=== PATIENT | male | born 1975 | race Caucasian/White ===

== ENCOUNTER 2017-05-10 08:48 | Inpatient (IN) | payer MEDICAID, OTHER ==
[2017-05-10] VITALS (10 sets, daily range): BP systolic 127–177; BP diastolic 80–102; PULSE 59–86; RESP 15–18; TEMP 97.6–98.2; O2SAT 95–99
[~2017-05-10] VITALS: Ht 172.7 cm; Wt 100.1 kg
[~2017-05-10 08:48] MED LIST: BACT PO; CLIN150 PO
[2017-05-10] MEDS ORDERED: SODIUM CHLOR 0.9% 1000 ML INJ 1,000 ML IV SCH (09:01)
--- NOTE | 2017-05-10 09:14 | PD ---
HPI Chief Complaint: Abdominal Pain Time Seen by Provider: 09:12 Travel History International Travel<30 days: No Contact w/Intl Traveler<30days: No Traveled to known affect area: No History of Present Illness HPI 41-year-old male with history of recent diagnosis of diabetes, presents to the ER today for right sided abdominal pain that started this morning, he states this started out in the right flank area with radiation down to the right sided abdomen. He has been nauseous and vomiting. He denies any diarrhea, fevers, urinary symptoms, or other symptoms. He denies any previous episodes. Modifying Factors: None Associated Signs & Symptoms: Nausea, vomiting, right sided abdominal and flank pain Risk Factors: Recent diabetes PFSH Past Medical History Anxiety: Yes High Cholesterol: Yes Diminished Hearing: No Gout: Yes (R KNEE) Immunizations Current: Yes Social History Alcohol Use: Yes (ONCE OR TWICE A MONTH) Tobacco Use: No Substance Use: No Allergies-Medications (Allergen,Severity, Reaction): Coded Allergies: No Known Allergies (Verified , 05/10/17) Reported Meds & Prescriptions Reported Meds & Active Scripts Active Review of Systems Except as stated in HPI: all other systems reviewed are Neg Physical Exam Narrative GENERAL: Well-developed middle age white male patient currently in moderate distress. SKIN: Focused skin assessment warm/dry. HEAD: Atraumatic. Normocephalic. EYES: Pupils equal and round. No scleral icterus. No injection or drainage. ENT: No nasal bleeding or discharge. Mucous membranes pink and moist. NECK: Trachea midline. No JVD. CARDIOVASCULAR: Regular rate and rhythm. No murmur appreciated. RESPIRATORY: No accessory muscle use. Clear to auscultation. Breath sounds equal bilaterally. GASTROINTESTINAL: Abdomen soft, right sided and periumbilical abdominal tenderness with no guarding or rebound, nondistended. Hepatic and splenic margins not palpable. MUSCULOSKELETAL: No obvious deformities. No clubbing. No cyanosis. No edema. BACK: Right CVA tenderness. No rash. No point tenderness on palpation of the spine. NEUROLOGICAL: Awake and alert. No obvious cranial nerve deficits. Motor grossly within normal limits. Normal speech. PSYCHIATRIC: Appropriate mood and affect; insight and judgment normal. Data Data Last Documented VS Vital Signs Date Time Temp Pulse Resp B/P Pulse Ox O2 Delivery O2 Flow Rate FiO2 05/10/17 11:57 60 15 158/100 95 05/10/17 10:03 Room Air 05/10/17 08:50 97.6 Orders Complete Blood Count With Diff (05/10/17 09:01) Comprehensive Metabolic Panel (05/10/17 09:01) Lipase (05/10/17 09:01) Urinalysis - C+S If Indicated (05/10/17 09:01) Iv Access Insert/Monitor (05/10/17 09:01) Ecg Monitoring (05/10/17 09:01) Oximetry (05/10/17 09:01) Ondansetron Inj (Zofran Inj) (05/10/17 09:15) Sodium Chlor 0.9% 1000 Ml Inj (Ns 1000 M (05/10/17 09:01) Sodium Chloride 0.9% Flush (Ns Flush) (05/10/17 09:15) Beta Hydroxybutyrate (Acetone) (05/10/17 09:01) Hydromorphone Pf Inj (Dilaudid Pf Inj) (05/10/17 09:15) Ct Abd/Pel W Iv Contrast(Rout) (05/10/17 09:12) Hydromorphone Pf Inj (Dilaudid Pf Inj) (05/10/17 09:45) Iohexol 350 Inj (Omnipaque 350 Inj) (05/10/17 10:48) Insulin Human Regular Inj (Novolin R Inj (05/10/17 11:30) Labs Laboratory Tests Test 05/10/17 09:15 White Blood Count 7.8 TH/MM3 Red Blood Count 5.76 MIL/MM3 Hemoglobin 16.3 GM/DL Hematocrit 47.6 % Mean Corpuscular Volume 82.6 FL Mean Corpuscular Hemoglobin 28.2 PG Mean Corpuscular Hemoglobin 34.1 % Concent Red Cell Distribution Width 13.7 % Platelet Count 197 TH/MM3 Mean Platelet Volume 10.0 FL Neutrophils (%) (Auto) 59.3 % Lymphocytes (%) (Auto) 27.5 % Monocytes (%) (Auto) 10.9 % Eosinophils (%) (Auto) 1.5 % Basophils (%) (Auto) 0.8 % Neutrophils # (Auto) 4.6 TH/MM3 Lymphocytes # (Auto) 2.1 TH/MM3 Monocytes # (Auto) 0.8 TH/MM3 Eosinophils # (Auto) 0.1 TH/MM3 Basophils # (Auto) 0.1 TH/MM3 CBC Comment DIFF FINAL Differential Comment Urine Color LIGHT-YELLOW Urine Turbidity CLEAR Urine pH 5.5 Urine Specific [place] 1.034 Urine Protein NEG mg/dL Urine Glucose (UA) 1000 mg/dL Urine Ketones TRACE mg/dL Urine Occult Blood NEG Urine Nitrite NEG Urine Bilirubin NEG Urine Urobilinogen LESS THAN 2.0 MG/DL Urine Leukocyte Esterase NEG Urine RBC 1 /hpf Microscopic Urinalysis Comment CULT NOT INDICATED Sodium Level 135 MEQ/L Potassium Level 4.0 MEQ/L Chloride Level 98 MEQ/L Carbon Dioxide Level 27.2 MEQ/L Anion Gap 10 MEQ/L Blood Urea Nitrogen 30 MG/DL Creatinine 1.27 MG/DL Estimat Glomerular Filtration 62 ML/MIN Rate Random Glucose 381 MG/DL Calcium Level 9.2 MG/DL Total Bilirubin 0.4 MG/DL Aspartate Amino Transf 18 U/L (AST/SGOT) Alanine Aminotransferase 33 U/L (ALT/SGPT) Alkaline Phosphatase 119 U/L Total Protein 8.4 GM/DL Albumin 3.9 GM/DL Lipase 226 U/L B-Hydroxybutyrate 0.21 MMOL/L [facility] Medical Decision Making Medical Screen Exam Complete: Yes Emergency Medical Condition: Yes Medical Record Reviewed: Yes Interpretation(s) Laboratory Tests Test 05/10/17 09:15 Monocytes (%) (Auto) 10.9 % (0.0-8.0) Urine Glucose (UA) 1000 mg/dL (NEG) Urine Ketones TRACE mg/dL (NEG) Sodium Level 135 MEQ/L (136-145) Blood Urea Nitrogen 30 MG/DL (7-18) Estimat Glomerular Filtration 62 ML/MIN (>89) Rate Random Glucose 381 MG/DL (74-106) Alkaline Phosphatase 119 U/L (45-117) Total Protein 8.4 GM/DL (6.4-8.2) Differential Diagnosis Renal colic versus musculoskeletal versus DKA versus cholecystitis versus other acute intra-abdominal processes Narrative Course Lab work did not show any significant metabolic issues or any signs of dehydration. His white count was unremarkable and UA did not show significant signs of UTI. Lipase is normal. CAT scan shows signs of possible inflammation around the left kidney and pancreas and there is a proximal 3-4 mm urethral stone. At this point, the pain is inconsistent with the findings and it is unclear whether this is the cause of the pain. We do not see any signs of other causes. My plan would be to admit him as an observation for further evaluation. Patient has also been given 2 doses of Dilaudid and still appears uncomfortable. Planning to admit for pain control as well. Case is discussed with Dr. Garcia for admission. Diagnosis Primary Impression: Kidney stone Additional Impression: Abdominal pain Admitting Information Admitting Physician Requests: Admit Scripts No Active Prescriptions or Reported Meds Anmol Mueller MD May 10, 2017 09:14
[2017-05-10] MEDS ORDERED: HYDROmorphone HCL PF 1 MG/ML VIAL IV PUSH ONE ×2 (09:15→09:45)
[2017-05-10] MEDS ORDERED: ONDANSETRON HCL 4 MG/2 ML VIAL IVP ONE (09:15)
[2017-05-10] MEDS ORDERED: SODIUM CHLORIDE 0.9% FLUSH 10 ML FLUSH IV FLUSH PRN ×2 (09:15→12:45)
[2017-05-10 09:32] LABS: AUTOMATED NEUTROPHIL # 4.6 TH/MM3 (1.8-7.7); BASOPHIL # 0.1 TH/MM3 (0-0.2); BASOPHIL % 0.8 % (0.0-2.0); EOSINOPHIL # 0.1 TH/MM3 (0-0.4); EOSINOPHIL % 1.5 % (0.0-4.0); HEMATOCRIT 47.6 % (39.0-51.0); HEMO FLAGS DIFF FINAL; LYMPH % 27.5 % (9.0-44.0); LYMPHOCYTE # 2.1 TH/MM3 (1.0-4.8); MEAN CELL VOLUME 82.6 FL (80.0-100.0); MEAN CORPUSCULAR HEMOGLOBIN 28.2 PG (27.0-34.0); MEAN CORPUSCULAR HGB CONC 34.1 % (32.0-36.0); MONO % 10.9 % (0.0-8.0); NEUT % 59.3 % (16.0-70.0); PLATELET COUNT 197 TH/MM3 (150-450); RED BLOOD COUNT 5.76 MIL/MM3 (4.50-5.90); RED CELL DISTRIBUTION WIDTH 13.7 % (11.6-17.2); WHITE BLOOD COUNT 7.8 TH/MM3 (4.0-11.0)
[2017-05-10 09:35] LABS: BLOOD, URINE NEG (NEG); COMMENT (UR) CULT NOT INDICATED; CULTURE IF INDICATED CULT NOT INDICATED; GLUCOSE,URINE 1000 mg/dL (NEG); KETONE, URINE TRACE mg/dL (NEG); NITRITE,URINE NEG (NEG); PH, URINE 5.5 (5.0-8.5); URINE COLOR LIGHT-YELLOW (YELLW/STRAW)
[2017-05-10 09:45] LABS: ANION GAP 10 MEQ/L (5-15); BICARBONATE 27.2 MEQ/L (21.0-32.0); BLOOD UREA NITROGEN 30 MG/DL (7-18); CHLORIDE 98 MEQ/L (98-107); GLOMERULAR FILTRATION RATE 62 ML/MIN (>89); SODIUM (NA) 135 MEQ/L (136-145)
[2017-05-10 09:48] LABS: ALKALINE PHOSPHATASE 119 U/L (45-117); ALT (GPT) 33 U/L (12-78); AST (GOT) 18 U/L (15-37); BETA-HYDROXYBUTYRATE 0.21 MMOL/L (0.00-0.39); TOTAL BILIRUBIN ADULT 0.4 MG/DL (0.2-1.0)
[2017-05-10] MEDS ORDERED: IOHEXOL 350 MG/ML 10 ML VIAL (for RAD DIAG) IV ONE (10:48)
[2017-05-10] MEDS ORDERED: INSULIN HUMAN REGULAR 1,000 UNITS/10 ML VIAL IV PUSH ONE (11:30)
--- NOTE | 2017-05-10 11:31 | RADRPT ---
EXAM DATE/TIME: 05/10/2017 10:43 [facility] COMPARISON: No previous studies available for comparison. INDICATIONS : Right flank pain radiating to abdomen with nausea and vomiting. IV CONTRAST: 97 cc Omnipaque 350 (iohexol) IV ORAL CONTRAST: No oral contrast ingested. RADIATION DOSE: 11.30 CTDIvol (mGy) MEDICAL HISTORY : None SURGICAL HISTORY : None. ENCOUNTER: Initial ACUITY: 1 day PAIN SCALE: 6/10 LOCATION: Right flank abdomen TECHNIQUE: Volumetric scanning of the abdomen and pelvis was performed. Using automated exposure control and ad justment of the mA and/or kV according to patient size, radiation dose was kept as low as reasonably achievable to obtain optimal diagnostic quality images. FINDINGS: The lung bases are clear. The liver is free of focal defects. The spleen is unremarkable. Gallblad biaml is contracted and probably contains a small stone. There is perinephric stranding about the right ureter with a tiny3-4 mm stone in the proximal third u pper left ureter. Stone is triangular shaped. There is some fluid in the lesser sac along the undersurface of the pancreas but the pancreas looks o martin. Pancreatitis could be excluded clinically. Pelvic contents are unremarkable. CONCLUSION: Stone 3-4 mm proximal third right ureter. Frank Méndez MD FACR on May 10, 2017 at 11:22 Board Certified Radiologist. This report was verified electronically.
[2017-05-10] MEDS ORDERED: LACTULOSE SYRUP 20 GM/30 ML CUP PO PRN (12:45)
[2017-05-10] MEDS ORDERED: ACETAMINOPHEN 325 MG TAB PO PRN (12:45)
[2017-05-10] MEDS ORDERED: BISACODYL 10 MG SUPP RECTAL PRN (12:45)
[2017-05-10] MEDS ORDERED: SENNOSIDES 8.6 MG TAB PO PRN (12:45)
[2017-05-10] MEDS ORDERED: MAGNESIUM HYDROXIDE SUSP 30 ML CUP PO PRN (12:45)
[2017-05-10] MEDS ORDERED: NALOXONE HCL 0.4 MG/ML AMP IV PRN (12:45)
[2017-05-10] MEDS: SODIUM CHLOR 0.9% 1000 ML INJ 1,000 ML IV SCH ×2 (13:11→23:45)
[2017-05-10] MEDS ORDERED: KETOROLAC TROMETHAMINE 30 MG/ML (IVP) VIAL IV PUSH ONE ×2 (13:15→21:30)
[2017-05-10] MEDS ORDERED: GLUCAGON 1 MG/ML VIAL OTHER PRN (13:30)
[2017-05-10] MEDS ORDERED: DEXTROSE 50% IN WATER 50 ML VIAL(D50) IV PRN (13:30)
--- NOTE | 2017-05-10 13:54 | HHI.HP ---
[facility] Service [place] Primary Care Physician No Primary Care Physician Admission Diagnosis abdominal pain/kidney stone Diagnoses: Chief Complaint: Right flank pain Travel History International Travel<30 Days: No Contact w/Intl Traveler <30 Da: No Traveled to Known Affected Are: No History of Present Illness Written by Bryan Cummins, acting as scribe for Dr. Garcia on 05/10/17 at 13:11. This note was transcribed by scribIsacc BELL. I, Dr. Betty Garcia personally performed the history, physical exam, and medical decision making; and confirmed the accuracy of the information in the transcribed note. Authenticated by Dr. Betty Garcia on 05/10/17 at 13:11. 41-year-old male with a recent diagnosis of glucosuria who presented with abdominal/flank pain. The patient states that he woke up today and had right flank pain. He locates the pain on his right lower back and states the pain radiates to his groin. He had associated nausea and vomiting today. He denies any recent back injury. He denies any problems with urination. No fevers. Intermittent, recent episodes of chest pain and shortness breath, none currently. 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 He bought a glucometer and has been checking his sugar at home which is persistently in the 300s and sometimes up to 450. He does have a family history of diabetes. He has had kidney stones in the past. The patient was admitted for intractable pain, likely from kidney stone. Review of Systems Except as stated in HPI: all other systems reviewed are Neg Past Family Social History Past Medical History History of kidney stones History of glucosuria with no formal diabetes diagnosis Reported Medications None Allergies: Coded Allergies: No Known Allergies (Verified , 05/10/17) Active Ordered Medications Current Medications Medications (Trade) Dose Ordered Sig/Kellie Route Start Time Stop Time Status Last Admin (NS 1000 ml Inj) 1,000 ml @ 100 mls/hr Q10H IV 05/10/17 12:31 05/10/17 13:11 (NS Flush) 2 ml UNSCH PRN IV FLUSH 05/10/17 12:45 (NS Flush) 2 ml BID IV FLUSH 05/10/17 21:00 (Tylenol) 650 mg Q4H PRN PO 05/10/17 12:45 (Lovenox Inj) 40 mg Q24H SQ 05/10/17 14:00 (Ladan-Colace) 1 tab BID PO 05/10/17 21:00 (Milk Of Magnesia Liq) 30 ml Q12H PRN PO 05/10/17 12:45 (Senokot) 17.2 mg Q12H PRN PO 05/10/17 12:45 (Dulcolax Supp) 10 mg DAILY PRN RECTAL 05/10/17 12:45 (Lactulose Liq) 30 ml DAILY PRN PO 05/10/17 12:45 ([place] 10-325 Mg) 1 tab Q4H PRN PO 05/10/17 12:45 (Dilaudid Pf Inj) 1 mg Q4HR PRN IV 05/10/17 12:45 (Narcan Inj) 0.4 mg UNSCH PRN IV 05/10/17 12:45 (D50w (Vial) Inj) 50 ml UNSCH PRN IV 05/10/17 13:30 (Glucagon Inj) 1 mg UNSCH PRN OTHER 05/10/17 13:30 Family History Brother had kidney stones Father and mother have diabetes Social History The patient denies any alcohol, tobacco, or drug use Physical Exam Vital Signs Vital Signs Date Time Temp Pulse Resp B/P Pulse Ox O2 Delivery O2 Flow Rate FiO2 05/10/17 13:17 97 05/10/17 12:38 68 15 155/80 97 Room Air 05/10/17 11:57 60 15 158/100 95 05/10/17 10:35 14 05/10/17 10:03 60 15 158/95 95 Room Air 05/10/17 10:02 15 05/10/17 09:19 59 15 154/98 95 Room Air 05/10/17 09:19 59 15 154/98 95 Room Air 05/10/17 09:19 15 05/10/17 08:50 97.6 60 16 177/102 99 Physical Exam GENERAL: Well-developed well-nourished. In no acute distress. SKIN: Warm and dry. No lesions noted. HEENT: Normocephalic. Pupils equal and round. Mucous membranes pink and moist. CARDIOVASCULAR: Regular rate and rhythm. No murmur appreciated. RESPIRATORY: No accessory muscle use. Clear to auscultation. Breath sounds equal bilaterally. GASTROINTESTINAL: Abdomen soft, nondistended. Tenderness to palpation from the right CVA around to the right groin. Bowel sounds x4. MUSCULOSKELETAL: No obvious deformities. No clubbing or cyanosis. No edema. Negative straight leg raise on the right. NEUROLOGICAL: Awake and alert. No focal neurological deficits. Moves upper and lower extremities spontaneously. Normal speech. PSYCHIATRIC: Appropriate mood and affect; insight and judgment normal. Laboratory Laboratory Tests Test 05/10/17 09:15 White Blood Count 7.8 Red Blood Count 5.76 Hemoglobin 16.3 Hematocrit 47.6 Mean Corpuscular Volume 82.6 Mean Corpuscular Hemoglobin 28.2 Mean Corpuscular Hemoglobin 34.1 Concent Red Cell Distribution Width 13.7 Platelet Count 197 Mean Platelet Volume 10.0 Neutrophils (%) (Auto) 59.3 Lymphocytes (%) (Auto) 27.5 Monocytes (%) (Auto) 10.9 Eosinophils (%) (Auto) 1.5 Basophils (%) (Auto) 0.8 Neutrophils # (Auto) 4.6 Lymphocytes # (Auto) 2.1 Monocytes # (Auto) 0.8 Eosinophils # (Auto) 0.1 Basophils # (Auto) 0.1 CBC Comment DIFF FINAL Differential Comment Urine Color LIGHT-YELLOW Urine Turbidity CLEAR Urine pH 5.5 Urine Specific [place] 1.034 Urine Protein NEG Urine Glucose (UA) 1000 Urine Ketones TRACE Urine Occult Blood NEG Urine Nitrite NEG Urine Bilirubin NEG Urine Urobilinogen LESS THAN 2.0 Urine Leukocyte Esterase NEG Urine RBC 1 Microscopic Urinalysis Comment CULT NOT INDICATED Sodium Level 135 Potassium Level 4.0 Chloride Level 98 Carbon Dioxide Level 27.2 Anion Gap 10 Blood Urea Nitrogen 30 Creatinine 1.27 Estimat Glomerular Filtration 62 Rate Random Glucose 381 Calcium Level 9.2 Total Bilirubin 0.4 Aspartate Amino Transf 18 (AST/SGOT) Alanine Aminotransferase 33 (ALT/SGPT) Alkaline Phosphatase 119 Total Protein 8.4 Albumin 3.9 Lipase 226 B-Hydroxybutyrate 0.21 Result Diagram: 05/10/17 0915 05/10/17 0915 Assessment and Plan Assessment and Plan 41-year-old male with a recent diagnosis of glucosuria who presented with abdominal/flank pain Right renal colic: Intractable right-sided flank pain with signs of passed stone on abdominal CT. Reviewed: CT abdomen and pelvis shows. Nephrotic stranding about the right ureter and a 23 4 mm stone in the proximal third upper left ureter; some fluid on the undersurface of the pancreas with no gross pancreatic abnormality. Lipase within normal limits. Afebrile with no leukocytosis. UA with 1000 glucose and trace ketones. -Pain control with [place] and IV Dilaudid prn. IV Toradol 1. -IVF -Check renal ultrasound New-onset diabetes mellitus with hyperglycemia: No signs of DKA. Sliding scale insulin coverage and monitor Accu-Cheks. Check hemoglobin A1c and lipid panel. Consult hospice educator and dietitian. Hypertension?: BP is elevated. Possibly secondary to pain and hyperglycemia. Clonidine as needed. Monitor. DVT prophylaxis: Lovenox Discussed Condition With Patient with SO at bedside. ED staff. Bryan Cummins May 10, 2017 13:54 Betty Garcia MD May 10, 2017 15:28
--- NOTE | 2017-05-10 14:46 | RADRPT ---
EXAM DATE/TIME: 05/10/2017 13:43 [facility] COMPARISON: No previous studies available for comparison. INDICATIONS : Flank pain. MEDICAL HISTORY : Hypercholesterolemia. Gout. Flank pain. SURGICAL HISTORY : None. ENCOUNTER: Initial ACUITY: 1 day PAIN SCORE: 7/10 LOCATION: Bilateral flank MEASUREMENTS: RIGHT KIDNEY: 12.6 x 7.2 x 7.7 cm LEFT KIDNEY: 12.6 x 5.3 x 6.2 cm FINDINGS: RIGHT KIDNEY: There is mild right-sided hydronephrosis and. Right kidney is otherwise unremarkable without evidence for stone. No significant mass. LEFT KIDNEY: There is a single echogenic stone in the mid left kidney measuring 5 x 3 x 5 mm. Left kidney is other kang unremarkable without evidence for hydronephrosis. No significant mass. BLADDER: There are at least 2 distinct hyperechoic stones with posterior shadowing noted primarily along the r ight dependent bladder. These measure 1.3 x 0.9 x 2.4 cm and 1.1 x 0.7 x 1.9 cm. CONCLUSION: 1. Small 5 x 3 x 5 mm nonobstructing mid left renal calyceal stone. 2. Mild right-sided hydronephrosis with at least 2 distinct apparent stones seen along the right depe ndent bladder measuring 1.3 x 0.9 x 2.4 cm and 1.1 x 0.7 x 1.9 cm. A dilated ureter is not documented by the mine engineer. Differential considerations include partially obstructing small right ureteral c alculus versus residual pelviectasis following passage of recent stone. CT examination may be perform ed for further evaluation as clinically warranted. Haris Woodard MD on May 10, 2017 at 14:35 Board Certified Radiologist. This report was verified electronically.
[2017-05-10] MEDS: ENOXAPARIN SODIUM 40 MG/0.4 ML SYRINGE SQ SCH (14:49)
[2017-05-10] MEDS ORDERED: cloNIDine HCL 0.1 MG TAB PO PRN (15:00)
[2017-05-10 16:02] LABS: HEMOGLOBIN A1a 1.2 %; HEMOGLOBIN A1b 1.2 %; HEMOGLOBIN Ao 75.6 %; HEMOGLOBIN F 2.1 %; HEMOGLOBIN LA1C 3.7 %; HEMOGLOBIN P3 5.1 %
[2017-05-10] MEDS: INSULIN ASPART SUPPLEMENTAL SCALE SQ SCH ×2 (18:20→20:37)
[2017-05-10] MEDS: SODIUM CHLORIDE 0.9% FLUSH 10 ML FLUSH IV FLUSH SCH (20:35)
[2017-05-10] MEDS: DOCUSATE SODIUM 50 MG/SENNA 8.6 MG TAB PO SCH (20:35)
[2017-05-10] MEDS ORDERED: INSULIN DETEMIR 100 UNITS/ML VIAL SQ SCH (21:00)
[2017-05-10] MEDS: ONDANSETRON HCL 4 MG/2 ML VIAL IV PUSH PRN (21:45)
[2017-05-11] VITALS (7 sets, daily range): BP systolic 119–140; BP diastolic 75–92; PULSE 69–77; RESP 18–21; TEMP 96.7–98.2; O2SAT 93–96
[2017-05-11] MEDS: ONDANSETRON HCL 4 MG/2 ML VIAL IV PUSH PRN (06:07)
[2017-05-11] MEDS: HYDROmorphone HCL PF 1 MG/ML VIAL IV PRN ×2 (06:08→21:48)
[2017-05-11] MEDS: INSULIN ASPART SUPPLEMENTAL SCALE SQ SCH ×4 (06:09→23:35)
[2017-05-11 07:49] LABS: AUTOMATED NEUTROPHIL # 9.1 TH/MM3 (1.8-7.7); BASOPHIL % 0.2 % (0.0-2.0); EOSINOPHIL % 0.1 % (0.0-4.0); HEMO FLAGS DIFF FINAL; LYMPH % 10.4 % (9.0-44.0); LYMPHOCYTE # 1.2 TH/MM3 (1.0-4.8); MEAN CELL VOLUME 81.7 FL (80.0-100.0); MEAN CORPUSCULAR HEMOGLOBIN 28.5 PG (27.0-34.0); MONO % 8.7 % (0.0-8.0); NEUT % 80.6 % (16.0-70.0); PLATELET COUNT 204 TH/MM3 (150-450); RED BLOOD COUNT 5.27 MIL/MM3 (4.50-5.90); RED CELL DISTRIBUTION WIDTH 13.7 % (11.6-17.2); WHITE BLOOD COUNT 11.2 TH/MM3 (4.0-11.0)
--- NOTE | 2017-05-11 08:15 | HHI.PR ---
Subjective Remarks Patient in bed. Says she had severe right flank pain around 4 AM, better after he received toradol. He has no fever , no chills. No n/v/d/c. Objective Vitals Vital Signs Date Time Temp Pulse Resp B/P Pulse Ox O2 Delivery O2 Flow Rate FiO2 05/11/17 03:38 98.2 72 19 140/86 96 05/11/17 01:27 93 05/10/17 23:35 98.2 86 18 127/83 95 05/10/17 19:22 98.2 71 18 141/82 96 05/10/17 15:42 97.8 66 16 127/80 96 05/10/17 14:12 98.0 61 18 146/89 95 05/10/17 13:17 97 05/10/17 12:38 68 15 155/80 97 Room Air 05/10/17 11:57 60 15 158/100 95 05/10/17 10:35 14 05/10/17 10:03 60 15 158/95 95 Room Air 05/10/17 10:02 15 05/10/17 09:19 59 15 154/98 95 Room Air 05/10/17 09:19 59 15 154/98 95 Room Air 05/10/17 09:19 15 05/10/17 08:50 97.6 60 16 177/102 99 I/O 05/10/17 05/10/17 05/10/17 05/11/17 05/11/17 05/11/17 07:00 15:00 23:00 07:00 15:00 23:00 Intake Total 120 ml Balance 120 ml Intake Oral 120 ml Result Diagram: 05/11/17 0649 05/10/1715 Imaging Last Impressions Abdomen/Pelvis CT 05/10/1712 Signed Impressions: Service Date/Time: Wednesday, May 10, 2017 10:43 - CONCLUSION: Stone 3-4 mm proximal third right ureter. Frank Méndez MD FACR Renal Ultrasound 05/10/17 0000 Signed Impressions: Service Date/Time: Wednesday, May 10, 2017 13:43 - CONCLUSION: 1. Small 5 x 3 x 5 mm nonobstructing mid left renal calyceal stone. 2. Mild right-sided hydronephrosis with at least 2 distinct apparent stones seen along the right dependent bladder measuring 1.3 x 0.9 x 2.4 cm and 1.1 x 0.7 x 1.9 cm. A dilated ureter is not documented by the or scrub tech. Differential considerations include partially obstructing small right ureteral calculus versus residual pelviectasis following passage of recent stone. CT examination may be performed for further evaluation as clinically warranted. Haris Woodard MD Objective Remarks GENERAL: Well-developed well-nourished. In no acute distress. SKIN: Warm and dry. No lesions noted. HEENT: Normocephalic. Pupils equal and round. Mucous membranes pink and moist. CARDIOVASCULAR: Regular rate and rhythm. No murmur appreciated. RESPIRATORY: No accessory muscle use. Clear to auscultation. Breath sounds equal bilaterally. GASTROINTESTINAL: Abdomen soft, nondistended. Tenderness to palpation from the right CVA around to the right groin. Bowel sounds x4. MUSCULOSKELETAL: No obvious deformities. No clubbing or cyanosis. No edema. Negative straight leg raise on the right. NEUROLOGICAL: Awake and alert. No focal neurological deficits. Moves upper and lower extremities spontaneously. Normal speech. PSYCHIATRIC: Appropriate mood and affect; insight and judgment normal. A/P Assessment and Plan 41-year-old male with a recent diagnosis of glucosuria who presented with abdominal/flank pain Right renal colic: Intractable right-sided flank pain with signs of passed stone on abdominal CT. CT abdomen and pelvis reviewed, shows. Nephrotic stranding about the right ureter and a 23 4 mm stone in the proximal third upper left ureter; some fluid on the undersurface of the pancreas with no gross pancreatic abnormality. US kidney reviewed: shows stone 3-4 mm proximal third right ureter. Consult urology Lipase within normal limits. Afebrile with no leukocytosis. UA with 1000 glucose and trace ketones. -Pain control with [place] and IV Dilaudid prn. IV Toradol. -Continue IVF New-onset diabetes mellitus A1c 11. No signs of DKA. Sliding scale insulin coverage, start levemir, monitor BS, Accu-Cheks. Consult social work program coordinator and dietitian. Hyperlipidemia: Lipid panel reviewed. LFT is normal. Start atorvastatin. Discussed at length regarding use of insulin, nurse also will teach patient to self inject insulin. Discussed at length dietary changes and exercise. Hypertension?: BP noted elevated on admission. Possibly secondary to pain and hyperglycemia. BP improved. Clonidine as needed. Monitor. Consider ACEI at DC if BP elevated. DVT prophylaxis: Lovenox Discussed Condition With Patient, nurse. Betty Garcia MD May 11, 2017 08:15
[2017-05-11 08:18] LABS: ALKALINE PHOSPHATASE 83 U/L (45-117); ALT (GPT) 29 U/L (12-78); ANION GAP 10 MEQ/L (5-15); AST (GOT) 15 U/L (15-37); BICARBONATE 23.6 MEQ/L (21.0-32.0); BLOOD UREA NITROGEN 33 MG/DL (7-18); CHLORIDE 104 MEQ/L (98-107); GLOMERULAR FILTRATION RATE 45 ML/MIN (>89); HDL CHOLESTEROL 36.1 MG/DL (40.0-60.0); LDL CHOLESTEROL 144 MG/DL (0-99); POTASSIUM 3.7 MEQ/L (3.5-5.1); SODIUM (NA) 138 MEQ/L (136-145); TOTAL BILIRUBIN ADULT 0.5 MG/DL (0.2-1.0)
[2017-05-11] MEDS: SODIUM CHLOR 0.9% 1000 ML INJ 1,000 ML IV SCH ×2 (08:31→15:33)
[2017-05-11] MEDS: SODIUM CHLORIDE 0.9% FLUSH 10 ML FLUSH IV FLUSH SCH ×2 (09:00→21:47)
[2017-05-11] MEDS: DOCUSATE SODIUM 50 MG/SENNA 8.6 MG TAB PO SCH ×2 (09:00→21:46)
[2017-05-11] MEDS ORDERED: ceFAZolin INJ 1,000 MG VIAL ONE (09:44)
[2017-05-11] MEDS ORDERED: IOHEXOL 300 MG/ML 50 ML BTL (for RAD DIAG) ONE (10:10)
[2017-05-11] MEDS ORDERED: SUGAMMADEX SODIUM 200 MG/2 ML VIAL IV PUSH ONE ×2 (10:43)
--- NOTE | 2017-05-11 10:50 | PD.CONS ---
HPI Service Urology Consult Requested By Primary Care Physician No Primary Care Physician Diagnosis: History of Present Illness 41-year-old male presented to the emergency room yesterday with right sided flank pain. He also was noted to have nausea and vomiting. He was kept overnight observation and had persistent right sided flank pain and was unable to take by mouth. CT scan performed demonstrated a 4 mm stone in the mid right ureter with mild to moderate hydronephrosis. He denies any fever or chills or history of prior stones. Review of Systems Constitutional: DENIES: Diaphoretic episodes Endocrine: DENIES: Heat/cold intolerance Ears, nose, mouth, throat: DENIES: Tinnitus Respiratory: DENIES: Apneas Cardiovascular: DENIES: Chest pain Gastrointestinal: COMPLAINS OF: Abdominal pain Genitourinary: DENIES: Sexual dysfunction Musculoskeletal: COMPLAINS OF: Joint pain Integumentary: DENIES: Abnormal pigmentation Hematologic/lymphatic: DENIES: Bruising Immunologic/allergic: DENIES: Eczema Neurologic: DENIES: Abnormal gait Psychiatric: COMPLAINS OF: Anxiety Past Family Social History Past Medical History High cholesterol Anxiety New onset diabetes Past Surgical History Denies Allergies: Coded Allergies: No Known Allergies (Verified , 05/10/17) Family History Reviewed and are pertinent to current condition Social History Occasional alcohol usage Physical Exam Vital Signs Date Time Temp Pulse Resp B/P Pulse Ox O2 Delivery O2 Flow Rate FiO2 05/11/17 08:40 98.0 69 20 136/92 96 05/11/17 03:38 98.2 72 19 140/86 96 05/11/17 01:27 93 05/10/17 23:35 98.2 86 18 127/83 95 05/10/17 19:22 98.2 71 18 141/82 96 05/10/17 15:42 97.8 66 16 127/80 96 05/10/17 14:12 98.0 61 18 146/89 95 05/10/17 13:17 97 05/10/17 12:38 68 15 155/80 97 Room Air 05/10/17 11:57 60 15 158/100 95 Physical Exam GENERAL: This is a well-nourished, well-developed patient, in no apparent distress. SKIN: No rashes, ecchymoses or lesions. Cool and dry. HEAD: Atraumatic. Normocephalic. No temporal or scalp tenderness. EYES: Pupils equal round and reactive. Extraocular motions intact. No scleral icterus. No injection or drainage. ENT: Nose without bleeding, purulent drainage or septal hematoma. Throat without erythema, tonsillar hypertrophy or exudate. Uvula midline. Airway patent. NECK: Trachea midline. No JVD or lymphadenopathy. Supple, nontender, no meningeal signs. CARDIOVASCULAR: Regular rate and rhythm without murmurs, gallops, or rubs. RESPIRATORY: Clear to auscultation. Breath sounds equal bilaterally. No wheezes , rales, or rhonchi. GASTROINTESTINAL: Abdomen soft, right sided tenderness, nondistended. No hepato- splenomegaly, or palpable masses. No guarding. Right CVA tenderness is noted GENITOURINARY: Normal phallus and testes are descended bilaterally MUSCULOSKELETAL: Extremities without clubbing, cyanosis, or edema. No joint tenderness, effusion, or edema noted. No calf tenderness. Negative Homans sign bilaterally. NEUROLOGICAL: Awake and alert. Cranial nerves II through XII intact. Motor and sensory grossly within normal limits. Five out of 5 muscle strength in all muscle groups. Normal speech. Laboratory Tests Test 05/11/17 06:49 White Blood Count 11.2 Red Blood Count 5.27 Hemoglobin 15.0 Hematocrit 43.0 Mean Corpuscular Volume 81.7 Mean Corpuscular Hemoglobin 28.5 Mean Corpuscular Hemoglobin 35.0 Concent Red Cell Distribution Width 13.7 Platelet Count 204 Mean Platelet Volume 10.0 Neutrophils (%) (Auto) 80.6 Lymphocytes (%) (Auto) 10.4 Monocytes (%) (Auto) 8.7 Eosinophils (%) (Auto) 0.1 Basophils (%) (Auto) 0.2 Neutrophils # (Auto) 9.1 Lymphocytes # (Auto) 1.2 Monocytes # (Auto) 1.0 Eosinophils # (Auto) 0.0 Basophils # (Auto) 0.0 CBC Comment DIFF FINAL Differential Comment Sodium Level 138 Potassium Level 3.7 Chloride Level 104 Carbon Dioxide Level 23.6 Anion Gap 10 Blood Urea Nitrogen 33 Creatinine 1.67 Estimat Glomerular Filtration 45 Rate Random Glucose 267 Calcium Level 8.6 Total Bilirubin 0.5 Aspartate Amino Transf 15 (AST/SGOT) Alanine Aminotransferase 29 (ALT/SGPT) Alkaline Phosphatase 83 Total Protein 7.4 Albumin 3.3 Triglycerides Level 220 Cholesterol Level 224 LDL Cholesterol 144 HDL Cholesterol 36.1 Cholesterol/HDL Ratio 6.20 Result Diagram: 05/11/17 0649 05/11/17 0649 Imaging Last Impressions Abdomen/Pelvis CT 05/10/17 0912 Signed Impressions: Service Date/Time: Wednesday, May 10, 2017 10:43 - CONCLUSION: Stone 3-4 mm proximal third right ureter. Frank Méndez MD FACR Renal Ultrasound 05/10/17 0000 Signed Impressions: Service Date/Time: Wednesday, May 10, 2017 13:43 - CONCLUSION: 1. Small 5 x 3 x 5 mm nonobstructing mid left renal calyceal stone. 2. Mild right-sided hydronephrosis with at least 2 distinct apparent stones seen along the right dependent bladder measuring 1.3 x 0.9 x 2.4 cm and 1.1 x 0.7 x 1.9 cm. A dilated ureter is not documented by the city marshal. Differential considerations include partially obstructing small right ureteral calculus versus residual pelviectasis following passage of recent stone. CT examination may be performed for further evaluation as clinically warranted. Haris Woodard MD Assessment and Plan Assessment and Plan 41-year-old male with a 4 mm obstructing stone causing right moderate hydronephrosis with nausea and vomiting Continue nothing by mouth Plan for cystoscopy right double-J stent insertion followed by extraportal shockwave lithotripsy. Eric Hernandez DO May 11, 2017 10:50
--- NOTE | 2017-05-11 10:54 | PD.OP ---
Operative Report Date of Surgery: May 11, 2017 Preoperative Diagnosis: Right ureteral calculus with hydronephrosis Postoperative Diagnosis: Same Procedure: Cystoscopy, right retrograde study, right double-J stent insertion Anesthesia: SMITH Surgeon: Eric Hernandez Director Of Slot Operations(s): None Resident Surgeon: None Operation and Findings: 41-year-old male admitted with a 4 mm right obstructing ureteral stone with hydronephrosis and nausea vomiting. Decision was made to take the patient to the operating room and undergo cystoscopy right double-J stent insertion. Risk and benefits were discussed preoperatively and he was willing to proceed. Patient is brought to operating room identified by myself as Brentonjose juan Gong. He is placed on the operating room table in the dorsal lithotomy position, prepped and draped in usual sterile fashion, received preprocedure antibiotics, and general endotracheal tube anesthesia was administered. 22 [place] scope was inserted in the bladder mcginnis cystoscopy did not reveal any abnormalities. A 5 [place] opening catheter was inserted into the distal right ureteral orifice and retrograde study was performed. Stone appeared to be blown back up into the kidney on retrograde study. A 0.35 sensor wire was then passed through the open -ended catheter and the open-ended catheter was removed. The wire remained with a good curl in the kidney and a 6 [place] 20 cm right double-J stent was passed over the wire without difficulty with good chronic kidney and a good curl in the bladder. The bladder was evacuated and he was woken and transferred to recovery stable condition. He will need to be placed on the lithotripsy schedule in the following few weeks. Eric Hernandez DO May 11, 2017 10:54
[2017-05-11] MEDS ORDERED: MIDAZOLAM HCL 2 MG/2 ML VIAL ONE (11:05)
[2017-05-11] MEDS ORDERED: *ONDANSETRON 4 MG VIAL PERIprocedural Use ONLY ONE (11:31)
[2017-05-11] MEDS ORDERED: *morphine SULFATE 8 MG/ML PERIprocedure ONLY ONE ×2 (11:31→11:43)
[2017-05-11] MEDS ORDERED: *PROMETHAZINE 25 MG/ML VIAL PERIprocedural use ONLY ONE (11:47)
[2017-05-11] MEDS ORDERED: ONDANSETRON HCL 4 MG/2 ML VIAL IV PUSH ONE (12:00)
[2017-05-11] MEDS ORDERED: PROPOFOL 200 MG/20 ML AMP IV ONE (12:00)
[2017-05-11] MEDS ORDERED: PHENYLEPH/NS 1000 MCG/10 ML SYR IV ONE (12:00)
[2017-05-11] MEDS ORDERED: NEOSTIGMINE 3 MG/3 ML SYR IV ONE (12:00)
[2017-05-11] MEDS ORDERED: DO NOT ADM ANY ANTICOAGULANT DRUGS PRN (12:00)
[2017-05-11] MEDS ORDERED: NITROGLYCERIN 0.4 MG SL 25 TABS/BTL SL PRN (13:30)
[2017-05-11] MEDS: ENOXAPARIN SODIUM 40 MG/0.4 ML SYRINGE SQ SCH (14:00)
[2017-05-11 15:07] LABS: CREATINE KINASE 59 U/L (39-308)
[2017-05-11 20:54] LABS: CREATINE KINASE 73 U/L (39-308)
[2017-05-11] MEDS ORDERED: INSULIN DETEMIR 100 UNITS/ML VIAL SQ SCH ×2 (21:00)
[2017-05-11] MEDS: ATORVASTATIN 40 MG TAB PO SCH (21:47)
[2017-05-12] VITALS (7 sets, daily range): BP systolic 123–136; BP diastolic 75–94; PULSE 60–84; RESP 15–22; TEMP 96.2–98.5; O2SAT 94–96
[2017-05-12] MEDS: SODIUM CHLOR 0.9% 1000 ML INJ 1,000 ML IV SCH ×3 (00:49→16:11)
[2017-05-12] MEDS: HYDROmorphone HCL PF 1 MG/ML VIAL IV PRN (03:57)
[2017-05-12] MEDS: INSULIN ASPART SUPPLEMENTAL SCALE SQ SCH ×4 (05:53→19:50)
[2017-05-12 05:56] LABS: AUTOMATED NEUTROPHIL # 5.8 TH/MM3 (1.8-7.7); BASOPHIL % 0.5 % (0.0-2.0); EOSINOPHIL # 0.1 TH/MM3 (0-0.4); EOSINOPHIL % 0.8 % (0.0-4.0); HEMATOCRIT 39.8 % (39.0-51.0); HEMO FLAGS DIFF FINAL; LYMPH % 23.4 % (9.0-44.0); LYMPHOCYTE # 2.1 TH/MM3 (1.0-4.8); MEAN CELL VOLUME 83.7 FL (80.0-100.0); MEAN CORPUSCULAR HGB CONC 33.5 % (32.0-36.0); MONO % 11.1 % (0.0-8.0); NEUT % 64.2 % (16.0-70.0); PLATELET COUNT 170 TH/MM3 (150-450); RED BLOOD COUNT 4.76 MIL/MM3 (4.50-5.90); RED CELL DISTRIBUTION WIDTH 13.5 % (11.6-17.2)
[2017-05-12 06:22] LABS: ANION GAP 8 MEQ/L (5-15); BICARBONATE 25.9 MEQ/L (21.0-32.0); BLOOD UREA NITROGEN 18 MG/DL (7-18); CHLORIDE 108 MEQ/L (98-107); GLOMERULAR FILTRATION RATE 89 ML/MIN (>89); POTASSIUM 3.6 MEQ/L (3.5-5.1); SODIUM (NA) 142 MEQ/L (136-145)
[2017-05-12] MEDS: SODIUM CHLORIDE 0.9% FLUSH 10 ML FLUSH IV FLUSH SCH ×2 (09:00→19:48)
[2017-05-12] MEDS: ACETAMINOPHEN/HYDROcodone 325 MG/10 MG TAB PO PRN ×3 (09:46→18:34)
[2017-05-12] MEDS: ONDANSETRON HCL 4 MG/2 ML VIAL IV PUSH PRN (09:46)
[2017-05-12] MEDS: DOCUSATE SODIUM 50 MG/SENNA 8.6 MG TAB PO SCH ×2 (09:47→19:48)
--- NOTE | 2017-05-12 12:20 | EKG ---
Date Performed: 05/11/2017 Time Performed: 19:17:20 PTAGE: 41 years EKG: Sinus rhythm NORMAL ECG PREVIOUS TRACING : 05/11/2017 13.55 Compared to prior tracing no significant change DOCTOR: Kemal Huitron Interpretating Date/Time 05/12/2017 12:17:52
--- NOTE | 2017-05-12 12:26 | HHI.PR ---
Subjective Remarks Patient in nad. No n/v/d/c. Says he feels comfortable to self inject insulin. Discussed regarding dietary changes, exercise, patient expressed understanding. Patient is telling me he still has pain. His urine is dark colored coca cola. No n/v/d/c. Eating well. 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 Patient is telling ,\me he feels comfortable to go home however after talking to his says he would rather stay and have diatician/ armhole baster hand seeing him, and also pain better controlled. Objective Vitals Vital Signs Date Time Temp Pulse Resp B/P Pulse Ox O2 Delivery O2 Flow Rate FiO2 05/12/17 08:00 96.6 60 15 130/94 95 05/12/17 04:29 16 05/12/17 04:00 96.3 84 20 125/84 94 05/12/17 00:13 96.2 69 19 123/75 95 05/11/17 21:45 76 05/11/17 20:00 96.7 73 21 139/90 96 05/11/17 16:07 98.2 77 18 119/75 96 05/11/17 15:42 71 I/O 05/11/17 05/11/17 05/11/17 05/12/17 05/12/17 05/12/17 07:00 15:00 23:00 07:00 15:00 23:00 Intake Total 1700 ml 1000 ml 1328 ml Output Total 5 ml 0 ml 700 ml Balance 1695 ml 1000 ml 628 ml Intake Oral 360 ml IV Total 800 ml 1000 ml 968 ml Other 900 ml Output Urine Total 0 ml 700 ml Estimated Blood Loss 5 ml # Voids 2 # Bowel Movements 0 0 Result Diagram: 05/12/17 0426 05/12/17 0426 Imaging Last Impressions Abdomen/Pelvis CT 05/10/17 0912 Signed Impressions: Service Date/Time: Wednesday, May 10, 2017 10:43 - CONCLUSION: Stone 3-4 mm proximal third right ureter. Frank Méndez MD FACR Renal Ultrasound 05/10/17 0000 Signed Impressions: Service Date/Time: Wednesday, May 10, 2017 13:43 - CONCLUSION: 1. Small 5 x 3 x 5 mm nonobstructing mid left renal calyceal stone. 2. Mild right-sided hydronephrosis with at least 2 distinct apparent stones seen along the right dependent bladder measuring 1.3 x 0.9 x 2.4 cm and 1.1 x 0.7 x 1.9 cm. A dilated ureter is not documented by the right of way worker. Differential considerations include partially obstructing small right ureteral calculus versus residual pelviectasis following passage of recent stone. CT examination may be performed for further evaluation as clinically warranted. Haris Woodard MD Objective Remarks GENERAL: Well-developed well-nourished. In no acute distress. SKIN: Warm and dry. No lesions noted. HEENT: Normocephalic. Pupils equal and round. Mucous membranes pink and moist. CARDIOVASCULAR: Regular rate and rhythm. No murmur appreciated. RESPIRATORY: No accessory muscle use. Clear to auscultation. Breath sounds equal bilaterally. GASTROINTESTINAL: Abdomen soft, nondistended. Tenderness to palpation from the right CVA around to the right groin. Bowel sounds x4. MUSCULOSKELETAL: No obvious deformities. No clubbing or cyanosis. No edema. Negative straight leg raise on the right. NEUROLOGICAL: Awake and alert. No focal neurological deficits. Moves upper and lower extremities spontaneously. Normal speech. PSYCHIATRIC: Appropriate mood and affect; insight and judgment normal. Procedures S/P Cystoscopy, right retrograde study, right double-J stent insertion by Dr Hernandez on 05/10/17. A/P Assessment and Plan 41-year-old male with a recent diagnosis of glucosuria who presented with abdominal/flank pain Right renal colic/ hematuria: Intractable right-sided flank pain with signs of passed stone on abdominal CT. CT abdomen and pelvis reviewed, shows: Nephrotic stranding about the right ureter and a 23 4 mm stone in the proximal third upper left ureter; some fluid on the undersurface of the pancreas with no gross pancreatic abnormality. US kidney reviewed: shows stone 3-4 mm proximal third right ureter. Consult urology . Seen by urology Dr Hernandez S/P Cystoscopy, right retrograde study, right double-J stent insertion by Dr Hernandez on 05/10/17. Lipase within normal limits. Afebrile with no leukocytosis. UA with 1000 glucose and trace ketones. -Pain control with [place]on and IV Dilaudid prn. IV Toradol. -Continue IVF [place] Cr noted elevated 1.6 on 05/11. Consulted urology. S/p cystoscopy. Cr improving. Continue IVF. Monitor kidney function New-onset diabetes mellitus A1c 11. No signs of DKA. Sliding scale insulin coverage, start levemir, monitor BS, Accu-Cheks. Consult pharmacy analyst and dietitian. Hyperlipidemia: Lipid panel reviewed. LFT is normal. Start atorvastatin. Discussed at length regarding use of insulin, nurse also will teach patient to self inject insulin. Discussed at length dietary changes and exercise. Hypertension?: BP noted elevated on admission. Possibly secondary to pain and hyperglycemia. BP improved. Clonidine as needed. Monitor. Consider ACEI at DC if BP elevated. DVT prophylaxis: Lovenox Discussed Condition With Patient, nurse. Betty Garcia MD May 12, 2017 12:26
--- NOTE | 2017-05-12 12:29 | EKG ---
Date Performed: 05/11/2017 Time Performed: 13:55:22 PTAGE: 41 years EKG: Sinus rhythm NORMAL ECG PREVIOUS TRACING : 01/23/2007 10.59 Compared to prior tracing no significant change DOCTOR: Kemal Huitron Interpretating Date/Time 05/12/2017 12:25:40
[2017-05-12] MEDS ORDERED: LANCETS1 MI1 (12:31)
[2017-05-12] MEDS ORDERED: HYDR-3583 PO (12:31)
[2017-05-12] MEDS ORDERED: GLUCTES12 (12:31)
[2017-05-12] MEDS ORDERED: LEVEMIR SQ (12:31)
[2017-05-12] MEDS ORDERED: GLUCKIT15 (12:31)
[2017-05-12] MEDS ORDERED: ATOR40TA16 PO (12:31)
[2017-05-12] MEDS ORDERED: INSU1MIS15 (12:31)
--- NOTE | 2017-05-12 13:18 | HHI.DS ---
Discharge Summary Admission Date May 11, 2017 at 13:13 Discharge Date: May 13, 2017 Admitting Diagnosis abdominal pain/kidney stone (1) Kidney stone ICD Code: N20.0 Diagnosis: Principal (2) Abdominal pain ICD Code: R10.9 Diagnosis: Principal (3) Uncontrolled diabetes mellitus ICD Code: E11.65 Diagnosis: Principal (4) Hyperlipidemia ICD Code: E78.5 Diagnosis: Principal Procedures S/P Cystoscopy, right retrograde study, right double-J stent insertion by Dr Hernandez on 05/10/17. Brief History - From Admission Written by Bryan Cummins, acting as scribe for Dr. Garcia on 05/10/17 at 13:11. This note was transcribed by [email or web address] BELL. I, Dr. Betty Garcia personally performed the history, physical exam, and medical decision making; and confirmed the accuracy of the information in the transcribed note. Authenticated by Dr. Betty Garcia on 05/10/17 at 13:11. 41-year-old male with a recent diagnosis of glucosuria who presented with abdominal/flank pain. The patient states that he woke up today and had right flank pain. He locates the pain on his right lower back and states the pain radiates to his groin. He had associated nausea and vomiting today. He denies any recent back injury. He denies any problems with urination. No fevers. Intermittent, recent episodes of chest pain and shortness breath, none currently. 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 He bought a glucometer and has been checking his sugar at home which is persistently in the 300s and sometimes up to 450. He does have a family history of diabetes. He has had kidney stones in the past. The patient was admitted for intractable pain, likely from kidney stone. CBC/BMP: 05/12/17 0426 05/12/17 0426 Significant Findings Laboratory Tests Test 05/10/17 05/11/17 05/11/17 05/11/17 09:15 06:49 13:50 19:53 Monocytes (%) (Auto) 10.9 % 8.7 % (0.0-8.0) (0.0-8.0) Urine Glucose (UA) 1000 mg/dL (NEG) Urine Ketones TRACE mg/dL (NEG) Sodium Level 135 MEQ/L (136-145) Blood Urea Nitrogen 30 MG/DL (7-18) 33 MG/DL (7-18) Estimat Glomerular Filtration 62 ML/MIN (>89) 45 ML/MIN (>89) Rate Random Glucose 381 MG/DL 267 MG/DL (74-106) (74-106) Hemoglobin A1c 11.1 % (4.3-6.0) Alkaline Phosphatase 119 U/L (45-117) Total Protein 8.4 GM/DL (6.4-8.2) White Blood Count 11.2 TH/MM3 (4.0-11.0) Neutrophils (%) (Auto) 80.6 % (16.0-70.0) Neutrophils # (Auto) 9.1 TH/MM3 (1.8-7.7) Monocytes # (Auto) 1.0 TH/MM3 (0-0.9) Creatinine 1.67 MG/DL (0.60-1.30) Albumin 3.3 GM/DL (3.4-5.0) Triglycerides Level 220 MG/DL (42-150) Cholesterol Level 224 MG/DL (120-200) LDL Cholesterol 144 MG/DL (0-99) HDL Cholesterol 36.1 MG/DL (40.0-60.0) Troponin I LESS THAN 0.02 LESS THAN 0.02 NG/ML NG/ML (0.02-0.05) (0.02-0.05) Test 05/12/17 04:26 Monocytes (%) (Auto) 11.1 % (0.0-8.0) Monocytes # (Auto) 1.0 TH/MM3 (0-0.9) Chloride Level 108 MEQ/L (98-107) Random Glucose 197 MG/DL (74-106) Calcium Level 8.3 MG/DL (8.5-10.1) Troponin I LESS THAN 0.02 NG/ML (0.02-0.05) Imaging Last Impressions Abdomen/Pelvis CT 05/10/17 0912 Signed Impressions: Service Date/Time: Wednesday, May 10, 2017 10:43 - CONCLUSION: Stone 3-4 mm proximal third right ureter. Frank Méndez MD FACR Renal Ultrasound 05/10/17 0000 Signed Impressions: Service Date/Time: Wednesday, May 10, 2017 13:43 - CONCLUSION: 1. Small 5 x 3 x 5 mm nonobstructing mid left renal calyceal stone. 2. Mild right-sided hydronephrosis with at least 2 distinct apparent stones seen along the right dependent bladder measuring 1.3 x 0.9 x 2.4 cm and 1.1 x 0.7 x 1.9 cm. A dilated ureter is not documented by the tint layer. Differential considerations include partially obstructing small right ureteral calculus versus residual pelviectasis following passage of recent stone. CT examination may be performed for further evaluation as clinically warranted. Haris Woodard MD PE at Discharge GENERAL: Well-developed well-nourished. In no acute distress. SKIN: Warm and dry. No lesions noted. HEENT: Normocephalic. Pupils equal and round. Mucous membranes pink and moist. CARDIOVASCULAR: Regular rate and rhythm. No murmur appreciated. RESPIRATORY: No accessory muscle use. Clear to auscultation. Breath sounds equal bilaterally. GASTROINTESTINAL: Abdomen soft, nondistended. Tenderness to palpation from the right CVA around to the right groin. Bowel sounds x4. MUSCULOSKELETAL: No obvious deformities. No clubbing or cyanosis. No edema. Negative straight leg raise on the right. NEUROLOGICAL: Awake and alert. No focal neurological deficits. Moves upper and lower extremities spontaneously. Normal speech. PSYCHIATRIC: Appropriate mood and affect; insight and judgment normal. Hospital Course 41-year-old male with a recent diagnosis of glucosuria who presented with abdominal/flank pain Right renal colic/ hematuria: Intractable right-sided flank pain with signs of passed stone on abdominal CT. CT abdomen and pelvis reviewed, shows: Nephrotic stranding about the right ureter and a 23 4 mm stone in the proximal third upper left ureter; some fluid on the undersurface of the pancreas with no gross pancreatic abnormality. US kidney reviewed: shows stone 3-4 mm proximal third right ureter. Consult urology . Seen by urology Dr Hernandez S/P Cystoscopy, right retrograde study, right double-J stent insertion by Dr Hernandez on 05/10/17. Lipase within normal limits. Afebrile with no leukocytosis. UA with 1000 glucose and trace ketones. -Pain control with Dawson and IV Dilaudid prn. IV Toradol. -Continue IVF [place] Cr noted elevated 1.6 on 05/11. Consulted urology. S/p cystoscopy. Cr improving. Continue IVF. Monitor kidney function New-onset diabetes mellitus A1c 11. No signs of DKA. Sliding scale insulin coverage, start levemir, monitor BS, Accu-Cheks. Consult check processor and dietitian. Hyperlipidemia: Lipid panel reviewed. LFT is normal. Start atorvastatin. Discussed at length regarding use of insulin, nurse also will teach patient to self inject insulin. Discussed at length dietary changes and exercise. Hypertension?: BP noted elevated on admission. Possibly secondary to pain and hyperglycemia. BP improved. Clonidine as needed. Monitor. Consider ACEI at DC if BP elevated. DVT prophylaxis: Lovenox Discussed Condition With Patient, nurse. Pt Condition on Discharge: Stable Discharge Disposition: Discharge Home Discharge Time: > 30 minutes Discharge Instructions Activities you can perform: Regular-No Restrictions Follow up Referrals: Diabetic Education - 2-3 Days PCP Follow-up - 3-5 Days Urology - 1 Week New Medications: Blood Glucose Monitoring W/Device (Glucocom Blood Glucose Mo W/Device) 1 Kit Kit 1 KIT .ROUTE DIRECTED Blood Sugar Management #1 KIT Glucocom Test Strips (Glucocom Test Strips) 1 Rosaline Rosaline 1 EA .ROUTE DIRECTED Blood Sugar Management #1 BOX Hydrocodone-Acetaminophen (Dawson) 5-325 mg Tab 1 TAB PO Q4H PRN PAIN #30 Ref 0 TAB Insulin Detemir Inj (Levemir Inj) 1,000 unit/ 10 ML Vial 20 UNITS SQ HS Do not mix with any other Insulin. Blood Sugar Management #60 Ref 0 VIAL Insulin Syringe/U-100/31G X 5/16" 1 ml (Insulin Syringe/U-100/31G X 5/16" 1 ml) 1 Mis Mis 1 EA .ROUTE DIRECTED Blood Sugar Management #1 Ref 0 BOX Lancets (Lancets) 1 Mis Mis 1 EA .ROUTE DIRECTED Blood Sugar Management #1 Ref 0 BOX Levofloxacin (Levaquin) 500 Mg Tablet 500 MG PO TID infection #3 TAB Atorvastatin (Atorvastatin) 40 Mg Tab 40 MG PO HS Cholesterol Management #30 TAB Betty Garcia MD May 12, 2017 13:18
[2017-05-12] MEDS ORDERED: LEVA500T20 PO (13:21)
[2017-05-12] MEDS ORDERED: NORC5TAB PO (13:23)
[2017-05-12] MEDS: ENOXAPARIN SODIUM 40 MG/0.4 ML SYRINGE SQ SCH (14:00)
[2017-05-12] MEDS: ATORVASTATIN 40 MG TAB PO SCH (19:48)
[2017-05-12] MEDS ORDERED: INSULIN DETEMIR 100 UNITS/ML VIAL SQ SCH (21:00)
[2017-05-13] VITALS: BP 120/84; PULSE 61; RESP 18; TEMP 98.5; O2SAT 96
[2017-05-13] MEDS: SODIUM CHLOR 0.9% 1000 ML INJ 1,000 ML IV SCH ×2 (00:34→08:09)
[2017-05-13 04:00] VITALS: BP 118/80; PULSE 59; RESP 16; TEMP 98.2; O2SAT 96
[2017-05-13] MEDS: ACETAMINOPHEN/HYDROcodone 325 MG/10 MG TAB PO PRN ×2 (05:08→09:39)
[2017-05-13] MEDS: INSULIN ASPART SUPPLEMENTAL SCALE SQ SCH ×2 (06:06→13:06)
[2017-05-13 08:00] VITALS: BP 127/86; PULSE 65; RESP 14; TEMP 97.5; O2SAT 97
[2017-05-13] MEDS: DOCUSATE SODIUM 50 MG/SENNA 8.6 MG TAB PO SCH (08:06)
[2017-05-13] MEDS: SODIUM CHLORIDE 0.9% FLUSH 10 ML FLUSH IV FLUSH SCH (08:08)
[2017-05-13 08:10] VITALS: PULSE 62
[2017-05-13 12:00] VITALS: BP 142/91; PULSE 74; RESP 18; TEMP 97.8; O2SAT 97
[2017-05-13] MEDS ORDERED: PHEN0.4T PO (14:27)
== END 2017-05-13 15:15 | disposition home or self-care (01) | DRG 694 ==
LOC: NEPE 08:48 → NEDA 12:33 → NEPGCP 14:43 → OBSVTOIN 05-11 13:13 → N07B 05-11 19:44
PROVIDERS: ADMIT Internal Medicine; ATTEND Internal Medicine
PROC: 0T768DZ Dilation of Right Ureter with Intraluminal Device, Via Natural or Artificial Opening Endoscopic (ICD-10-PCS; principal; 2017-05-11 09:56)
DX: N13.2 Hydronephrosis with renal and ureteral calculous obstruction (principal); N17.9 Acute kidney failure, unspecified; E11.65 Type 2 diabetes mellitus with hyperglycemia; M10.9 Gout, unspecified; F41.9 Anxiety disorder, unspecified; E78.5 Hyperlipidemia, unspecified; Z83.3 Family history of diabetes mellitus; Z87.442 Personal history of urinary calculi
CPT/HCPCS: 74177; 74420; 76775; 80048; 80053; 80061; 81001; 82010; 82550; 82948; 83036; 83690; 84484; 85025; 93005; 96365; 96372; 96375; 96376; C1769; C2617; G0378; J0690; J1170; J1650; J1815; J1885; J2250; J2270; J2370; J2405; J2550; J2710; J3010; J7030; Q9967

== ENCOUNTER → 2017-06-05 | Day surgery (SDC) | payer MEDICAID, OTHER ==
[~2017-06-05] MED LIST changes: +ATOR40TA16 PO; -BACT PO; +CHLORHEXIDINE GLUCONATE 2 % 1 PACK (2 CLOTHS) TOPICAL PRN; -CLIN150 PO; +DO NOT ADM ANY ANTICOAGULANT DRUGS PRN; +FAMOTIDINE 20 MG/2 ML VIAL ONE; +INSULIN HUMAN REGULAR 1,000 UNITS/10 ML VIAL SQ PRN; +LACTATED RINGER'S 1000 ML IV PRN; +LEVEMIR SQ; +METOPROLOL TARTRATE 25 MG TAB PO PRN; +MIDAZOLAM HCL 2 MG/2 ML VIAL ONE; +ONDANSETRON HCL 4 MG/2 ML VIAL IV PUSH ONE; +ONDANSETRON HCL 4 MG/2 ML VIAL IV PUSH PRN; +PERC5TAB12 PO; +POVIDONE IODINE 5% (ANTISEPSIS KIT) 4 APPLICATIONS EACH NARE PRN; +PROPOFOL 200 MG/20 ML AMP IV ONE; +SODIUM CHLORID 0.9% 500 ML IV PRN; +TYLE325T PO; +oxyCODONE/ACETAMINOPHEN 5 MG/325 MG TAB PO PRN
[2017-06-05 05:40] VITALS: BP 108/79; PULSE 76; RESP 20; TEMP 98.6; O2SAT 96
--- NOTE | 2017-06-05 06:20 | RADRPT ---
EXAM DATE/TIME: 06/05/2017 05:42 [facility] COMPARISON: CT ABDOMEN & PELVIS W CONTRAST, May 10, 2017, 10:43. INDICATIONS : Pre op lithotripsy. MEDICAL HISTORY : Renal calculi. SURGICAL HISTORY : Stent placement, right. ENCOUNTER: Initial ACUITY: 1 day PAIN SCORE: 0/10 LOCATION: abdomen, all quadrants. FINDINGS: A right ureteral stent has been placed since the prior CT. I don't clearly see a ureteral calculus bu t there is a 4 mm stone projecting over the right lower pole which may have been pushed into the kidn ey during stent placement. No other urinary tract stones are seen. Nonobstructive bowel gas pattern. No free air. CONCLUSION: Right ureteral stent present. 4 mm stone projects over the lower pole of the right kidney. I don't se e a ureteral calculus. Please see above. Joni Garza MD on June 05, 2017 at 6:16 Board Certified Radiologist. This report was verified electronically.
--- NOTE | 2017-06-05 08:22 | PD.OP ---
Operative Report Date of Surgery: Jun 05, 2017 Preoperative Diagnosis: (1) Renal calculus, right Postoperative Diagnosis: (1) Renal calculus, right Procedure: ESWL right renal calculus Anesthesia: General Surgeon: Wili Muñiz Alteration Tailor Apprentice(s): None Operation and Findings: Indication for procedure: Case of a pleasant 41-year-old gentleman who presents today to undergo ESWL of a right renal calculus measuring approximately 4 mm in size. Patient is status post recent right ureteral stent placement. Operative procedure in detail: Patient was brought to the operating room suite and placed supine on the lithotripsy table. He was next placed a general anesthesia. After appropriate timeout was undertaken the patient's right renal calculus was localized with fluoroscopy. He subsequently received extracorporeal shockwave lithotripsy utilizing the Monitor Piezolith 3000 device. The patient received a total of 2500 shocks with a maximum power level setting of 20. At the conclusion of the procedure the stone was markedly mobile therapist intensity consistent with fragmentation. The patient tolerated the procedure without complications and was transferred to the PACU in satisfactory condition. Wili Muñiz MD Jun 05, 2017 08:22
[2017-06-05 10:00] VITALS: BP 121/82; PULSE 63; RESP 16; TEMP 98.2; O2SAT 100
== END | disposition home or self-care (01) ==
LOC: HSDC 05:27
PROVIDERS: ATTEND Urology
DX: N20.0 Calculus of kidney (principal); E11.9 Type 2 diabetes mellitus without complications; E78.5 Hyperlipidemia, unspecified; G62.9 Polyneuropathy, unspecified
CPT/HCPCS: 00872; 50590; 74000; 82948; J1815; J2250; J2405; J7120